=== PATIENT | female | born 1955 | race Two or more races ===

== ENCOUNTER 2019-12-24 12:37 | Outpatient (CLI) | payer MEDICAID ==
[~2019-12-24] VITALS: Ht 160 cm; Wt 78.9 kg
[2019-12-24 13:10] VITALS: BP 149/87
[2019-12-24] MEDS ORDERED: EXCEDRIN EXTRA1 EAC1 PO (13:27)
[2019-12-24] MEDS ORDERED: OMEPRAZOLE40 M1 ORAL (13:27)
[2019-12-24] MEDS ORDERED: HYDROXYCHLOROQUINE PO (13:27)
[2019-12-24] MEDS ORDERED: AMLODIPINE BESYL5 MG ORAL (13:27)
--- NOTE | 2019-12-24 19:29 | Consultation ---
DATE OF CONSULTATION: 12/24/2019 CHIEF COMPLAINT: Rectal bleeding. HISTORY OF PRESENT ILLNESS: The patient is a 64-year-old female who presents to us with complaint of constipation, hard stool, rectal bleeding. Last colonoscopy was 10 years ago. PAST MEDICAL HISTORY: 1. Hypertension. 2. Arthritis. 3. Hypercholesteremia. 4. Lupus. PAST SURGICAL HISTORY: None. MEDICATIONS: Please see medication reconciliation list. FAMILY HISTORY: Noncontributory. SOCIAL HISTORY: The patient denies any tobacco, alcohol, or drug abuse. ALLERGIES: No known allergies. REVIEW OF SYSTEMS: Positive for constipation, rectal bleeding. PHYSICAL EXAMINATION: VITAL SIGNS: Temperature 97.8, blood pressure , pulse 78, respirations 20. HEENT: Normocephalic and atraumatic. Sclerae anicteric. NECK: Supple. No evidence of obvious lymphadenopathy. CARDIOVASCULAR: Regular rate and rhythm. Plus S1 and S2. LUNGS: Clear to auscultation bilaterally. ABDOMEN: Positive bowel sounds. Soft and nontender. No rebound. No guarding. No peritoneal sign. EXTREMITIES: No cyanosis. No clubbing. No edema ASSESSMENT AND PLAN: This is a 64-year-old female with rectal bleeding. Last colonoscopy was 10 years ago. The patient was given a stool softener, Colace, was told to call back if the bleeding continues. Otherwise, we are going to plan to schedule for screening colonoscopy. The patient was given instruction and prep for the colonoscopy and we will schedule as soon as authorization is obtained. Bryn June M.D. DR: Tara JOB#: [id number] CC:
== END 2019-12-24 15:40 | disposition home or self-care (01) ==
LOC: PAN 12:37
DX: K62.5 Hemorrhage of anus and rectum (principal); K59.00 Constipation, unspecified; I10 Essential (primary) hypertension; M19.90 Unspecified osteoarthritis, unspecified site; E78.00 Pure hypercholesterolemia, unspecified

== ENCOUNTER 2020-11-06 14:21 | Outpatient (CLI) | payer MEDICAID ==
[~2020-11-06 14:21] MED LIST: AMLODIPINE BESYL5 MG ORAL; EXCEDRIN EXTRA1 EAC1 PO; HYDROXYCHLOROQUINE PO; OMEPRAZOLE40 M1 ORAL
[2020-11-06 14:33] VITALS: BP 158/81
--- NOTE | 2020-11-06 14:42 | General Progress Note ---
Subjective ROS Limited/Unobtainable: Yes Allergies: Coded Allergies: No Known Allergies (Unverified , 12/24/19) Objective Last 24 Hour Vital Signs Date Time Temp Pulse Resp B/P (MAP) Pulse Ox O2 Delivery O2 Flow Rate FiO2 11/06/20 14:33 96.8 91 16 158/81 98 General Appearance: no apparent distress EENT: normal ENT inspection Neck: supple Cardiovascular: normal rate Respiratory/Chest: decreased breath sounds Abdomen: normal bowel sounds, non tender, soft Extremities: non-tender Assessment/Plan Assessment/Plan: HP gastritis antral erosions diverticulosis colon polyp x2 fair colonoscopy prep treat for HP RTC 3 months repeat colon in 3 years Bryn June MD Nov 06, 2020 14:42
== END 2020-11-06 14:51 | disposition home or self-care (01) ==
LOC: PAN 14:21
DX: K44.9 Diaphragmatic hernia without obstruction or gangrene (principal); K29.70 Gastritis, unspecified, without bleeding; B96.81 Helicobacter pylori [H. pylori] as the cause of diseases classified elsewhere; K57.90 Diverticulosis of intestine, part unspecified, without perforation or abscess without bleeding; K63.5 Polyp of colon
CPT/HCPCS: 99203